=== PATIENT | female | born 1950 | race Caucasian/White ===

== ENCOUNTER → 2017-03-23 | Outpatient (CLI) | payer OTHER ==
[2017-03-23 16:40] LABS: HEMOGLOBIN 13.6 gm/dl (12.3-15.3); RED BLOOD COUNT 4.59 M/UL (4.00-5.10); WHITE BLOOD COUNT 9.5 K/UL (4.5-11.0)
[2017-03-23 17:00] LABS: BUN/CREATININE RATIO 18 (0-10)
== END ==
LOC: RAD 15:57
PROVIDERS: Nurse Practitioner Family
DX: R09.1 Pleurisy (principal)
CPT/HCPCS: 36415; 71020; 80053; 85025